=== PATIENT | male | born 2000 | race Caucasian/White ===

== ENCOUNTER 2022-11-02 20:58 | Emergency (ER) | payer OTHER, SELFPAY ==
--- NOTE | ~2022-11-02 | XR_ITS ---
EXAMINATION: XR wrist RT min 3V, XR hand RT min 3V DATE: 11/02/2022 21:39 INDICATION: Blunt trauma including dog bite to the right hand and wrist. TECHNIQUE: 1. Posteroanterior, ulnar deviation, oblique, and lateral views of the right wrist were obtained. 2. Dorsal palmar, oblique and lateral views of the right hand were obtained. COMPARISON: None. FINDINGS: Alignment of the right hand and wrist is normal. Atypical small concavity to the cortex along the rad ial side of the proximal metaphyseal region of the base of the fifth proximal phalanx and could not e xclude fracture although there is no sharp angulation of the cortex, linear lucency or discrete corti tong discontinuity to more specifically suggest this. Other lesions suspicious for fracture identified . Joint spaces are normal. Soft tissues are unremarkable.. IMPRESSION: 1. Atypical localized concavity to the cortex at the radial side of the base of the fifth proximal ph alanx and could not exclude a localized impaction fracture such as could be expected with a tooth. Co rrelate for puncture wound in the vicinity of the webspace between the fourth and fifth digits. Reviewed, dictated and finalized at location A. IMPRESSION: 1. Atypical localized concavity to the cortex at the radial side of the base of the fifth proximal phalanx and could not exclude a localized impaction fractur e such as could be expected with a tooth. Correlate for puncture wound in the v icinity of the webspace between the fourth and fifth digits.
[2022-11-02 21:03] VITALS: BP 163/75; PULSE 79; RESP 16; TEMP 36.8; O2SAT 99
[2022-11-02] MEDS: HYDROcodone/acetaminophen (*CRX) 5-325 MG TABLET 1 TAB PO (22:51)
[2022-11-02] MEDS: KETOROLAC 30 MG/ML VIAL (*BKC) IV PUSH (22:52)
[2022-11-02] MEDS: AMPICILLIN SULB 3 GM/NS 100 ML 3 GM/100 ML VIAL IVPB (22:52)
--- NOTE | 2022-11-02 22:52 | ED.UPPEXIN ---
HPI - Extremity Injury (Upper) General Chief Complaint: Extremity Injury, Upper Stated Complaint: hand injury Time Seen by Provider: 11/02/22 22:16 Source: patient Mode of arrival: ambulatory Limitations: no limitations History of Present Illness HPI narrative: Patient is a 22 y/o male who presents to the ED with c/o dog bite to his R hand. 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 He sustained several puncture wounds to the right dorsal hand. Patient continued working but reported pain to his right hand and fingers. He tried popping his right third digit knuckle and reported having worsening pain afterwards. Patient has not taken anything for pain today. His tetanus status is up-to-date. He is unsure of the dog's vaccination status, but states it was a house dog and well-groomed. A report was made. Patient denies any fevers. Denies any other injuries. Related Data Allergies Allergy/AdvReac Type Severity Reaction Status Date / Time No Known Allergies Allergy Verified 11/02/22 21:02 Review of Systems Review of Systems: CONSTITUTIONAL: Denies fever, chills, or sweats. SKIN: See HPI. MUSCULOSKELETAL: See HPI. NEUROLOGIC: Denies tingling, numbness, or weakness. All systems reviewed & are unremarkable except as noted in HPI and below PMFSH Past Medical History Medical History (Updated 11/02/22 @ 23:36 by Krystal Patricia PA-C) No pertinent past medical history Surgical History Surgical History (Updated 11/02/22 @ 23:36 by Krystal Patricia PA-C) No pertinent past surgical history Social History Social History (Updated 11/02/22 @ 23:36 by Krystal Patricia PA-C) Smoking status: Never smoker Exam Narrative: GENERAL: Well appearing, well-nourished, non-toxic, in no acute distress. HEAD: Normocephalic, atraumatic. NECK: Supple. No adenopathy, no masses. RESPIRATORY: Airway patent, respirations nonlabored. CARDIOVASCULAR: Regular rate and rhythm without murmurs, rubs, or gallops. Radial pulses 2+ and equal bilaterally. MUSCULOSKELETAL: Limited range of motion of right fingers due to pain. Tenderness diffusely throughout right dorsal hand and fingers, particularly to right third digit PIP joint, with some swelling present. 4 small scattered puncture wounds to right dorsal hand, no active bleeding or drainage. No snuffbox tenderness. SKIN: Warm, dry, normal color. No rashes. NEURO: A&O X3. Speech clear. Cranial nerves II-XII grossly intact. Steady gait. No ataxic movements. PSYCHIATRIC: Appropriate mood and affect. Normal interaction. Course Vital Signs Vital signs: Vital Signs Temperature 98.3 F 11/02/22 21:03 Pulse Rate 79 11/02/22 21:03 Respiratory Rate 16 11/02/22 21:03 Blood Pressure 163/75 H 11/02/22 21:03 Pulse Oximetry 99 11/02/22 21:03 Oxygen Delivery Room Air 11/02/22 21:03 Temperature 98.3 F 11/02/22 21:03 Pulse Rate 79 11/02/22 21:03 Respiratory Rate 16 11/02/22 21:03 Blood Pressure 163/75 H 11/02/22 21:03 Pulse Oximetry 99 11/02/22 21:03 Oxygen Delivery Room Air 11/02/22 21:03 MDM - Extremity Injury (Upper) MDM Narrative Medical decision making narrative: Patient presented to ED status post dog bite to right hand. Vital stable upon arrival. Afebrile. No other injuries. X-rays without acute findings. Did show possible fracture deformity between fourth and fifth digit web spacing, however patient does not have any wounds or tenderness in this area. He does report a previous fifth metacarpal fracture in the past. Tenderness more surrounding 3rd digit. Patient's tetanus status up-to-date. Wounds were thoroughly irrigated and cleansed. Patient given dose of Unasyn in the ED. Will be discharged on Augmentin, with antibiotic ointment and pain medication. Will provide hand surgery information for follow-up.
[2022-11-03 00:07] VITALS: BP 133/73; PULSE 74; RESP 16; O2SAT 97
== END 2022-11-03 00:07 | disposition home or self-care (01) ==
PROVIDERS: Emergency Provider Physician Assistant
DX: S61.451A Open bite of right hand, initial encounter (principal); S66.911A Strain of unspecified muscle, fascia and tendon at wrist and hand level, right hand, initial encounter; W54.0XXA Bitten by dog, initial encounter
CPT/HCPCS: 73110; 73130; 96365; 96375; 99284; A9270; J0295; J1885